=== PATIENT | female | born 1960 | race Two or more races ===

== ENCOUNTER 2022-03-15 20:27 | Emergency (ER) | payer SELFPAY ==
[~2022-03-15] VITALS: Ht 152.4 cm; Wt 53.5 kg
[2022-03-15 20:47] VITALS: BP 140/78
[2022-03-15] MEDS ORDERED: BACI/NEOM/POLY B OINT PKT 1 UDPKT PACKET ONE (20:50)
[2022-03-15] MEDS ORDERED: BACI/NEOM/POLY B OINT PKT 1 UDPKT PACKET TP ONE (21:00)
[2022-03-15] MEDS ORDERED: TDAP [DIPH/PERTUSSIS/TET] 0.5 ML VIAL IM ONE ×2 (21:30→21:32)
[2022-03-15] MEDS ORDERED: ONDANSETRON 4 MG TAB.RAPDIS SL ONE (21:30)
[2022-03-15] MEDS ORDERED: IBUPROFEN 600 MG TABLET PO ONE (21:30)
[2022-03-15] MEDS ORDERED: IBUPROFEN 600 MG TABLET ONE (21:31)
[2022-03-15] MEDS ORDERED: ONDANSETRON 4 MG TAB.RAPDIS ONE (21:32)
[2022-03-15] MEDS ORDERED: ACETAMINOPHEN 325 MG TABLET ONE (21:33)
[2022-03-15] MEDS ORDERED: ACETAMINOPHEN 650 MG/20.3 ML UDC PO ONE (22:00)
== END 2022-03-15 21:44 | disposition home or self-care (01) ==
LOC: ER 20:36 → EDBD 20:36 → ER 21:44
DX: T24.201A Burn of second degree of unspecified site of right lower limb, except ankle and foot, initial encounter (principal); Z60.2 Problems related to living alone; V49.49XA Driver injured in collision with other motor vehicles in traffic accident, initial encounter; Y93.89 Activity, other specified; Y92.413 State road as the place of occurrence of the external cause; Y99.8 Other external cause status
CPT/HCPCS: 16020; 73590; 90471; 90715; 99283; Q0162